=== PATIENT | male | born 1950 | race Caucasian/White ===

== ENCOUNTER 2017-02-22 07:36 | Day surgery (SDC) | payer MEDICARE, MEDICAID ==
[2017-02-22 08:23] LABS: LYMPH # 2.4 K/mm3 (0.7-4.5)
[2017-02-22 08:26] LABS: BUN 22 mg/dL (7-18); GFR (ESTIMATED) 75 ML/MIN (>60)
[2017-02-22 08:32] LABS: HEMOGLOBIN 16.5 g/dL (14.1-18.0)
--- NOTE | 2017-02-22 10:33 | RADIOLOGY REPORT PS360 ---
CARDIAC CATHETERIZATION DATE OF CATHETERIZATION:02/22/2017 10:01 AM PROCEDURES: CARDIAC CATHETERIZATION DATE OF CATHETERIZATION:02/22/2017 10:01 AM PROCEDURES: 1. Left heart catheterization 2. Left ventriculogram 3. Selective coronary angiogram 4. Drug-eluting stent deployment to the proximal mid dominant right coronary artery 5. Angioplasty to the large posterior lateral ventricular branch INDICATION FOR TEST: 1. Coronary artery disease 2. Abnormal Myoview inferior lateral and posterior ischemia 3. Angina pectoris class III and IV Informed consent was obtained prior to the procedure. COMPLICATIONS: None ESTIMATED BLOOD LOSS: Less than 10 ml. TECHNIQUE: One percent lidocaine used to anesthetize the right anterior aspect of the wrist. The right radial artery was accessed via the Seldinger technique. A 6 Sinhala sheath was placed in the right radial artery. 2.5 mg of verapamil, 800 mcg of nitroglycerin and 5000 U Heparin were given through the arterial sheath. A dexterity catheter was used to perform left heart catheterization left ventriculogram and selective coronary angiogram. At the end of the diagnostic angiogram and additional 5000 units of heparin was administered along with 60 mg of Effient orally. The first ACT measured 328 seconds. An [employer] right guide catheter was used to intubate the right coronary artery and a choice PT extra-support wire was placed distally. Primary stenting could not be performed therefore a guideline her was placed in the mid segment which allowed delivery of a 4 mm x 30 mm resolute [place] stent and deployed at 20 susie. The stent was clearly under deployed and did not match the artery size therefore a 5 mm x 15 mm balloon was deployed at 20 susie distally and proximally reducing the stenosis to less than 10%. A small degree of no reflow phenomena occurred which required 2 aliquots of nitroglycerin 800 mcg for resolution. Following this a choice PT floppy wire was in placed into the posterior lateral ventricular branch and a 2 mm x 15 mm compliant balloon was deployed at 20 susie reducing the 99% in-stent restenosis to 10%. MARILU-3 flow was present before and after the procedure. The closing ACT was 242 seconds therefore an additional 2000 units of heparin was administered intravenously. At the end of the procedure the apparatus was removed the sheath was removed good hemostasis was achieved using TR banding patient was transferred to the postop holding area in stable condition ANGIOGRAPHIC RESULTS: 1. The left main artery normal 2. The left anterior descending artery proximally has mild atheromatous plaque with a stent that starts proximally and extends into the mid segment. Is minimal in-stent restenosis. Distal to the stent there is mild to moderate atheromatous plaque with no stenosis greater than 30% 3. The circumflex artery is a nondominant yet still large vessel and has multiple concentric 50% stenoses throughout the proximal and mid segment. 4. The right coronary artery is a large dominant vessel and has moderate diffuse vascular ectasia with an eccentric 60% proximal stenosis and a 99% stenosis in the posterior lateral ventricular branch representing in-stent restenosis. The large posterior descending artery has mild atheromatous plaque 5. The KEMP ventriculogram reveals normal ejection fraction 65% 6. The left ventricular end-diastolic pressure mildly elevated 15 mmHg IMPRESSION: 1. Severe atheromatous disease and plaque in the very large proximal dominant right coronary 2. Successful stenting of the proximal to mid dominant right coronary artery severe disease reduced to less than 10% with 1 drug-eluting stent postdilated with a 5 mm balloon at 20 susie 3. Successful angioplasty of the large posterior lateral ventricular branch 99% stenosis reduced to 10% with POBA only 4. Persistent moderate disease in the large circumflex artery 5. Normal ejection fraction 6. Mildly elevated LVEDP PLAN: 1. Effient and aspirin 2. Long-acting nitrates 3. Cardiac rehabilitation 4. Avoidance of any tobacco products 5. LDL less than 55 6. I would like to treat patient medically for the time being. Should he continue to have angina consideration will be given to revascularize the large circumflex artery. 7. Given the mild degree of no reflow phenomena which occurred in the right coronary artery I am hesitant to place a stent into the large posterior lateral ventricular branch at this time. Should patient develop recurrent in-stent restenosis I would consider stenting at another time.
[2017-02-22 14:40] VITALS: BP 134/79
== END 2017-02-22 14:37 | disposition home or self-care (01) ==
LOC: CATHLAB 07:36
PROVIDERS: Internal Medicine
PROC: B2111ZZ Fluoroscopy of Multiple Coronary Arteries using Low Osmolar Contrast (ICD-10-PCS; 2017-02-22)
PROC: B2151ZZ Fluoroscopy of Left Heart using Low Osmolar Contrast (ICD-10-PCS; 2017-02-22)
PROC: 027034Z Dilation of Coronary Artery, One Artery with Drug-eluting Intraluminal Device, Percutaneous Approach (ICD-10-PCS; 2017-02-22)
PROC: 02703ZZ Dilation of Coronary Artery, One Artery, Percutaneous Approach (ICD-10-PCS; 2017-02-22)
PROC: 4A023N7 Measurement of Cardiac Sampling and Pressure, Left Heart, Percutaneous Approach (ICD-10-PCS; principal; 2017-02-22 08:00)
DX: I25.118 Atherosclerotic heart disease of native coronary artery with other forms of angina pectoris (principal); I25.83 Coronary atherosclerosis due to lipid rich plaque; Z72.0 Tobacco use; R94.39 Abnormal result of other cardiovascular function study
CPT/HCPCS: C1725; C1769; C1876; J1644; Q9967

== ENCOUNTER → 2017-07-04 | Outpatient (CLI) | payer MEDICARE, MEDICAID ==
--- NOTE | 2017-07-04 13:32 | RADIOLOGY REPORT PS360 ---
CHEST(2 VIEWS-NOT PORTABLE) HISTORY: COUGH ORDERING PHYSICIAN: Terrence Gary APRN PATIENT AGE: 67 years COMPARISON: 01/16/2017 FINDINGS: The cardiomediastinal silhouette and pulmonary vascularity are within normal limits. Consolidation is present within the lingula consistent with pneumonia.. 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 IMPRESSION: Pneumonia within the lingula
== END ==
LOC: RAD 12:14
DX: R05 Cough (principal)